=== PATIENT | male | born 2000 | race Caucasian/White ===

== ENCOUNTER 2021-07-12 15:55 | Emergency (ER) | payer SELFPAY ==
[~2021-07-12] VITALS: Ht 177.8 cm; Wt 90.4 kg
[2021-07-12] MEDS ORDERED: ACET325T9 PO (16:20)
[2021-07-12] MEDS ORDERED: IBUP-577 PO (16:20)
--- NOTE | 2021-07-12 16:23 | PHYS DOC ---
Past History Past Surgical History: Other Additional Past Surgical Histo: tonsils and adnoids (COOKIE GILLILAND APRN) Additional Smoking Information: states recently quit Alcohol Use: Occasionally Additional Alcohol Information: States he quit drinking 1 month ago (COOKIE GILLILAND APRN) General Adult EDM: Chief Complaint: FEVER HPI: HPI: Patient is a 21-year-old male being seen in the ER for fatigue, headache, nasal congestion and drainage, loss of smell and taste, cough, fevers, chills that started 9 days ago. Patient states that his entire family was sick. He denies any shortness of breath, chest pain, travel. He is not vaccinated for COVID-19. Patient is afebrile. He is not hypoxic. Patient's heart rate is in the 90s to 101 bpm. (COOKIE GILLILAND APRN) Review of Systems: Review of Systems: 14 body systems of the review of systems have been reviewed. See HPI for pertinent positive and negative responses, otherwise all other systems are negative, nonpertinent or noncontributory (COOKIE GILLILAND APRN) Physical Exam: PE: Constitutional: Well developed, well nourished, no acute distress, non-toxic appearance. [] HENT: Normocephalic, atraumatic, bilateral external ears normal, oropharynx moist, no oral exudates, nose normal. [] Eyes: PERRL, EOMI, conjunctiva normal, no discharge. [] Neck: Normal range of motion, no tenderness, supple, no stridor. [] Cardiovascular:Heart rate regular rhythm, no murmur [] Lungs & Thorax: Upper lobes clear, bilateral expiratory wheezing in the lower lobes, no tachypnea, no hypoxia, no accessory muscle use Abdomen: Bowel sounds normal, soft, no tenderness, no masses, no pulsatile masses. [] Skin: Warm, dry, no erythema, no rash. [] Back: Normal range of motion Extremities: No tenderness, no cyanosis, no clubbing, ROM intact, no edema. [] Neurologic: Alert and oriented X 3, normal motor function, normal sensory function, no focal deficits noted. [] Psychologic: Affect normal, judgement normal, mood normal. [] (COOKIE GILLILAND APRN) Current Patient Data: Vital Signs: Vital Signs Date Time Temp Pulse Resp B/P (MAP) Pulse Ox O2 Delivery O2 Flow Rate FiO2 07/12/21 16:03 98.1 104 18 149/95 (113) 97 Room Air (COOKIE GILLILAND APRN) EKG: EKG: [] (COOKIE GILLILAND APRN) Radiology/Procedures: Radiology/Procedures: PROCEDURE: PORTABLE CHEST 1V EXAMINATION: XR CHEST 1V CLINICAL HISTORY: Cough EXAM DATE/TIME: 07/12/2021 4:00 PM COMPARISON: None FINDINGS: Lines, Tubes, and Devices: None. Cardiomediastinal Silhouette: Within normal limits. Lungs and Pleura: No evidence of focal airspace consolidation, pleural effusion, or pneumothorax. Bones and Soft Tissues: No acute osseous abnormality. IMPRESSION: No evidence of acute cardiopulmonary abnormality. Electronically signed by: Cedrick Almaraz DO (07/12/2021 4:32 PM) [facility] DICTATED AND SIGNED BY: CEDRICK ALMARAZ DO DATE: 07/12/21 1631 CC: COOKIE GILLILAND APRN; PCP,NO ~MTH0 0[] (COOKIE GILLILAND APRN) Heart Score: C/O Chest Pain: No Risk Factors: Risk Factors: DM, Current or recent (<one month) smoker, HTN, HLP, family history of CAD, obesity. Risk Scores: Score 0 - 3: 2.5% MACE over next 6 weeks - Discharge Home Score 4 - 6: 20.3% MACE over next 6 weeks - Admit for Clinical Observation Score 7 - 10: 72.7% MACE over next 6 weeks - Early Invasive Strategies (COOKIE GILLILAND APRN) Course & Med Decision Making: Course & Med Decision Making Pertinent Labs and Imaging studies reviewed. (See chart for details) [] Patient is a 21-year-old male being seen in the ER for multiple complaints such as fatigue, headache, congestion, fever, chills, cough. Patient had numerous sick exposures at home. Patient's pain treated in the ER. Patient is likely to have a COVID-19 infection he was tested in the ER will be notified of those results when they become available. A chest x-ray was performed to rule out pneumonia and it showed no acute findings. Patient was noted to have expiratory wheezes in the lung bases and was given a DuoNeb treatment in the ER. Patient was afebrile and not hypoxic while in the ER. Following breathing treatment, patient reports that he feels much better. Patient is requesting to be discharged home. His wheezing has improved. Patient be discharged home with an albuterol inhaler. I discussed with patient all findings and diagnostic testing as well as the need to follow-up with PCP for further evaluation and treatment or return to the ER if any new or worsening symptoms. Strict return precautions were also discussed at length. Patient voiced understanding and agreement with the plan. Patient is hemodynamically stable at the time of disposition. (COOKIE GILLILAND APRN) Course & Med Decision Making Did not see or evaluate patient. 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 Agree with BUTTON FACING MACHINE OPERATOR's work-up and disposition per note. (MARIVEL TAYLOR MD) Dragon Disclaimer: Dragon Disclaimer: This electronic medical record was generated, in whole or in part, using a voice recognition dictation system. (COOKIE GILLILAND APRN) Departure Departure: Impression: Primary Impression: Person under investigation for COVID-19 Disposition: HOME / SELF CARE / HOMELESS Condition: GOOD Referrals: PCP,NO (PCP) Patient Instructions: Cough, Adult Additional Instructions: You were seen in the ER for multiple complaints consistent with a COVID-19 infection. You were tested in the ER and will be notified of those results when they become available in approximately 2 days. Please self isolate until you receive these results. You had a chest x-ray performed and it was negative for any acute findings. Please rest and increase your fluids at home. You can take Tylenol/ibuprofen for any pain. You are being discharged home with an albuterol inhaler. Please take this as directed. Please follow-up with your primary care provider tomorrow regarding your ER visit. If you develop worsening of your shortness of breath, chest pain, high fevers refractory to treatment, intractable nausea or vomiting, lethargy, confusion or any new or worsening concerns please return to the ER immediately. EMERGENCY DEPARTMENT GENERAL DISCHARGE INSTRUCTIONS Thank you for coming to [facility] (ED) today and trusting us with you care. We trust that you had a positivie experience in our Emergency Department. If you wish to speak to the department management, you may call the director at [phone]. YOUR FOLLOW UP INSTRUCTIONS ARE FOLLOWS: 1. Do you have a private Doctor? If you do not have a private doctor, please ask for a resource list of physicians or clinics that may be able to assist you with follow up care. 2. The Emergency Physician has interpreted your x-rays. The X-Ray specialist will also review them. If there is a change in the findings, you will be notified in 48 hours when at all possible. 3. A lab test or culture has been done, your results will be reviewed and you will be notified if you need a change in treatment. ADDITIONAL INSTRUCTIONS AND INFORMATION: 1. Your care today has been supervised by a physician who is specially trained in emergency care. Many problems require more than one evaluation for a complete diagnosis and treatment. We recommend that you schedule your follow up appointment as recommended to ensure complete treatment of you illness or injury. If you are unable to obtain follow up care and continue to have a problem, or if your condition worsens, we recommend that you return to the ED. 2. We are not able to safely determine your condition over the phone nor are we able to give sound medical advice over the phone. For these safety reasons, if you call for medical advice we will ask you to come to the ED for further evaluation. 3. If you have any questions regarding these discharge instructions please call the ED at [phone]. SAFETY INFORMATION: In the interest of safety, wellness, and injury prevention; we encourage you to wear your sealbelt, if you smoke; quite smoking, and we encourage family to use a protective helmet for bicycling and other sporting events that present an increased risk for head injury. IF YOUR SYMPTOMS WORSEN OR NEW SYMPTOMS DEVELOP, OR YOU HAVE CONCERNS ABOUT YOUR CONDITION; OR IF YOUR CONDITION WORSENS WHILE YOU ARE WAITING FOR YOUR FOLLOW UP APPOINTMENT; EITHER CONTACT YOUR PRIMARY CARE DOCTOR, THE PHYSICIAN WHOSE NAME AND NUMBER YOU WERE GIVEN, OR RETURN TO THE ED IMMEDIATELY. Scripts Albuterol Sulfate (PROAIR HFA INHALER) 8.5 Gm Hfa.aer.ad 2 PUFF IH PRN Q4-6HRS PRN for wheezing for 21 Days, #1 INHALER 0 Refills as needed for wheezing Prov: COOKIE GILLILAND MEDICAL AND SCIENTIFIC ILLUSTRATOR 07/12/21 COOKIE GILLILAND APRN Jul 12, 2021 16:23 MARIVEL TAYLOR MD Jul 12, 2021 18:09
[2021-07-12] MEDS ORDERED: IPRATRPIUM/ALBUTEROL 0.5/2.5MG 3 ML NEBU. NEB ONE (16:30)
--- NOTE | 2021-07-12 16:34 | RAD ---
EXAMINATION: XR CHEST 1V CLINICAL HISTORY: Cough EXAM DATE/TIME: 07/12/2021 4:00 PM COMPARISON: None FINDINGS: Lines, Tubes, and Devices: None. Cardiomediastinal Silhouette: Within normal limits. Lungs and Pleura: No evidence of focal airspace consolidation, pleural effusion, or pneumothorax. Bones and Soft Tissues: No acute osseous abnormality. IMPRESSION: No evidence of acute cardiopulmonary abnormality. Electronically signed by: Cedrick Anguiano DO (07/12/2021 4:32 PM) [facility]
[2021-07-12] MEDS ORDERED: ALBU2.5V8 IH (17:45)
[2021-07-12] MEDS ORDERED: HYDROcodone/APAP 5/325MG 1 TAB TABLET PO ONE (18:00)
[2021-07-12 18:14] VITALS: BP 118/69
== END 2021-07-12 18:16 | disposition home or self-care (01) ==
LOC: ER 15:55
DX: R53.83 Other fatigue (principal); R51.9 Headache, unspecified; R09.81 Nasal congestion; Z87.891 Personal history of nicotine dependence; Z20.822 Contact with and (suspected) exposure to COVID-19
CPT/HCPCS: 71045; 94640; 99285; C9803; U0003